=== PATIENT | male | born 1950 ===

== ENCOUNTER 2017-12-03 12:37 | Emergency (ER) | payer MEDICARE, BC ==
[2017-12-03 12:49] VITALS: BP 133/75
--- NOTE | 2017-12-03 13:30 | UC ---
Minor Trauma HPI - HPI Summary HPI Summary: FELL OFF A STEP LADDER AND STRUCK LEFT RIB CAGE ON SIDE OF LADDER. FOOSHED LEFT HAND. OCCURRED ABOUT 2 HOURS MECHANICAL INSULATOR. - History of Current Complaint Chief Complaint: UCUpperExtremity Stated Complaint: L RIB CAGE AND L WRIST INJURY Time Seen by Provider: 12/03/17 12:48 Hx Obtained From: Patient Onset/Duration: Sudden Onset, Lasting Hours, Still Present Onset Of Pain: Immediate Severity Initially: Moderate Severity Currently: Moderate Pain Intensity: 3 Pain Scale Used: 0-10 Numeric Mechanism Of Injury: Blunt Trauma Aggravating Factor(s): Other: - TOUCH Alleviating Factor(s): Rest - Allergies/Home Medications Allergies/Adverse Reactions: Allergies Allergy/AdvReac Type Severity Reaction Status Date / Time codeine Allergy Hallucinati Verified 12/03/17 12:49 ons Home Medications: Home Medications Aspirin 325 mg PO 12/03/17 [History] Atorvastatin* [Lipitor*] 40 mg PO DAILY 12/03/17 [History Confirmed 12/03/17] Dulaglutide [Trulicity] 1.5 mg SQ 12/03/17 [History] Omeprazole 20 mg PO 12/03/17 [History] Ramipril [Altace] 2.5 mg PO 12/03/17 [History] metFORMIN* [Glucophage 1000 MG TAB *] 1,000 mg PO BID 12/03/17 [History Confirmed 12/03/17] PMH/Surg Hx/FS Hx/Imm Hx Endocrine History: Diabetes, Dyslipidemia Cardiovascular History: Cardiac Disease - AORTIC VALVE REPLACEMENT, Hypertension GI/ History: Gastroesophageal Reflux - Surgical History Surgical History: Yes Surgery Procedure, Year, and Place: aeortic valve replaced, rt foot, rhino plasty - Family History Known Family History: Positive: Hypertension - Social History Alcohol Use: Weekly Substance Use Type: None Smoking Status (MU): Never Smoked Tobacco Review of Systems Constitutional: Negative Skin: Negative Respiratory: Negative Cardiovascular: Negative Gastrointestinal: Negative Musculoskeletal: Arthralgia All Other Systems Reviewed And Are Negative: Yes Physical Exam Triage Information Reviewed: Yes Appearance: Well-Appearing, No Pain Distress, Well-Nourished Vital Signs: Initial Vital Signs Temp 98.1 F 12/03/17 12:45 Pulse 103 12/03/17 12:45 Resp 18 12/03/17 12:45 BP 133/75 12/03/17 12:45 Pulse Ox 98 12/03/17 12:45 Vital Signs Reviewed: Yes Eyes: Positive: Conjunctiva Clear ENT: Positive: Hearing grossly normal Neck: Positive: Supple Respiratory: Positive: No respiratory distress, No accessory muscle use Cardiovascular: Positive: Pulses Normal Abdomen Description: Positive: Soft Musculoskeletal: Positive: ROM Intact, No Edema, Other: - MINIMALLY TENDER LEFT LATERAL RIB CAGE. TTP LEFT WRIST DORSAL SURFACE Neurological: Positive: Alert Psychological: Positive: Age Appropriate Behavior Skin: Negative: rashes Diagnostics - Radiology LEFT RIB XRAYS Xray Interpretation: No Acute Changes Radiology Interpretation Completed By: Radiologist No standard instances Xray Interpretation: No Acute Changes Radiology Interpretation Completed By: Radiologist Minor Trauma Course/Dx - Differential Dx/Diagnosis Provider Diagnoses: 1. LEFT RIB CONTUSION. 2. LEFT WRIST CONTUSION/SPRAIN Discharge - Sign-Out/Discharge Documenting (check all that apply): Patient Departure All imaging exams completed and their final reports reviewed: Yes - Discharge Plan Condition: Stable Disposition: HOME Patient Education Materials: Wrist Sprain (ED), Rib Contusion (ED) Referrals: Trav Villanueva MD [Primary Care Provider] - If Needed Additional Instructions: XRAY TODAY NEGATIVE FOR FRACTURE OR DISLOCATION. YOUR SYMPTOMS SHOULD IMPROVE SIGNIFICANTLY OVER THE NEXT 1-2 WEEKS. IF YOU DO NOT IMPROVE EXPECTED FOLLOW- UP WITH YOUR PCP. YOU MAY BENEFIT FROM REPEAT IMAGING AT THAT TIME. OTC MEDS NEEDED FOR DISCOMFORT. REST, ICE, COMPRESS, ELEVATE. SPLINT/RIGOBERTO FOR COMPRESSION AND SUPPORT. BE SURE TO GO THROUGH SLOW RANGE OF MOTION AND STRETCHING EXERCISES DAILY YOU ARE ABLE TO PREVENT STIFFENING UP AND MAKING THE DISCOMFORT WORSE. - Billing Disposition and Condition Condition: STABLE Disposition: Home
--- NOTE | 2017-12-03 13:54 | RAD ---
Indication: LEFT lateral rib pain post fall. Comparison: No relevant prior exams available on the [facility] P[facility] for comparison. Technique: Dual energy PA chest and 5 view LEFT rib series obtained. Report: Inferolateral skin marker noted indicating the site of clinical concern superficial to the costochondral calcifications of the LEFT eighth and ninth ribs. No rib fracture, pulmonary contusion, pleural effusion, or pneumothorax evident. Median sternotomy wires and prosthetic aortic valve noted. Negative for cardiomegaly. Unremarkable central pulmonary vasculature and mediastinal contours. IMPRESSION: #. Negative for LEFT rib fracture or pneumothorax.
--- NOTE | 2017-12-03 14:00 | RAD ---
INDICATION: Left wrist injury COMPARISON: None TECHNIQUE: AP, lateral, and oblique views were obtained. FINDINGS: There is no acute bony change. The carpals articulate normally. There may be a remote avulsion injury from the ulnar styloid and there may be a remote triquetral injury. There is minor osteoarthritic change about the base of the thumb IMPRESSION: NO ACUTE BONY FINDINGS.
== END 2017-12-03 14:15 | disposition home or self-care (01) ==
LOC: UCEAST 12:37
DX: S20.212A Contusion of left front wall of thorax, initial encounter (principal); E78.5 Hyperlipidemia, unspecified; I10 Essential (primary) hypertension; K21.9 Gastro-esophageal reflux disease without esophagitis; E11.9 Type 2 diabetes mellitus without complications; Z88.5 Allergy status to narcotic agent; Z79.82 Long term (current) use of aspirin; Z79.899 Other long term (current) drug therapy
CPT/HCPCS: 99212; G0463